=== PATIENT | male | born 1955 | race Caucasian/White ===

== ENCOUNTER → 2017-11-12 15:50 | Outpatient (CLI) | payer OTHER, SELFPAY | PROVIDERS: Visit Provider Family Medicine | DX: M70.32 Other bursitis of elbow, left elbow (principal) | CPT/HCPCS: 87070; 87205 ==

== ENCOUNTER 2019-03-04 08:50 | Inpatient (IN) | payer OTHER, SELFPAY ==
[2019-03-04] VITALS (7 sets, daily range): BP systolic 108–145; BP diastolic 54–85; PULSE 69–77; RESP 16–18; TEMP 37.2–38.1; O2SAT 94–100; BMI 29.5; BMI 28.3; BMI 28.4
--- NOTE | 2019-03-04 09:04 | CT_ITS ---
STUDY: CT ABDOMEN AND PELVIS WITHOUT CONTRAST REASON FOR EXAM: Male, 63 years old. 3 day history of left flank pain. RADIATION DOSAGE (If Supplied By Facility): CTDIvol = ( 7.19 ) mGy, DLP = ( 384.36 ) mGycm TECHNIQUE: Transaxial images were obtained from the dome of the diaphragm to the symphysis pubis without oral contrast, and without intravenous contrast. Sagittal and coronal images were reconstructed. Individualized dose optimization techniques were used for this CT. COMPARISON: None. FINDINGS: The visualized lung bases are unremarkable. Coronary artery calcification of the circumflex artery. Cysts are seen in both lobes of the liver. Normal gallbladder and extrahepatic biliary system. Normal spleen. Normal pancreas. Normal bilateral adrenal glands. Mild degree of right perinephric stranding. Mild degree of left perinephric stranding. Mild degree of bilateral hydronephrosis versus parapelvic renal cysts. There is a small hiatal hernia. Normal small intestine. There are scattered colonic diverticula consistent with diverticulosis. The appendix is visualized and appears normal. Normal abdominal aorta. Normal inferior vena cava. Normal retroperitoneum. Normal urinary bladder. There is enlargement of the prostate gland. The prostate measures 6.2 cm x 5.2 cm. There is a small umbilical hernia containing fat. Small bilateral inguinal hernias containing fat. There are mild degenerative changes of the visualized lumbar spine. CT/Abdomen/Pelvis without Cont IMPRESSION: Mild degree of nonspecific bilateral perinephric stranding and mild hydronephrosis. Prostatic enlargement. Small bilateral inguinal hernias containing fat as well as umbilical hernia. Hepatic cysts. Electronically Signed: Quan Hinson, at 10:19 EST , Service support ,
--- NOTE | 2019-03-04 09:06 | ED.DCSUM_ITS ---
- ER Visit Summary Date of Service: 03/04/19 Chief Complaint: [Back pain] History of Present Illness: The patient is a 63 M [resents to the emergency department complaint of pain in his back that started 2 days ago. Patient states that the pain initially on gradually and was more mild. Last night he had a hard time sleeping because of the amount of pain he was having. Patient complains of urinary frequency. He denies any fever. Denies any blood in his stool or black tarry stool. Denies dysuria. Patient currently rates his pain an 8 out of 10. Patient is never had pain like this before. Patient denies any pain rating down his legs. He denies any weakness in extremities or change in bowel bladder function. Patient denies any trauma to his back. He has no medical history. Denies IV drug use.] Physical Examination: [HEENT-PERRLA, EOMI. Cranial nerves II through XII grossly intact. TMs clear. Mucous membranes moist. No adenopathy. Cardiovascular-regular rate and rhythm without murmur or ectopy Lungs-clear to auscultation, chest wall stable without crepitus or subcu emphysema Abdomen-normoactive bowel sounds, soft. Patient has some tenderness palpation over the suprapubic region on exam. Patient has some CVA tenderness on the left. There is no rebound, rigidity, or perineal signs. No masses palpated. Extremities-intact ?4, normal range of motion, normal pulses, atraumatic] Test Results: [CBC with differential given 4.2, hemoglobin 15, hematocrit 46, platelets 233. Chemistries unremarkable. Urinalysis showed 100 leukocyte esterase and 10.5 WBCs as well as 1025 RBCs are +2 bacteria. Urine was sent for culture. CT scan of the M pelvis showed mild left and right perinephric stranding.] Emergency Department Course and Treatment: [Patient was ordered Rocephin 1 g IV. Patient was medicated with morphine and Zofran as well as Toradol on arrival. Patient was given a second dose of morphine IV. Patient continues to complain of pain.] Treatment Plan: [Admit] Disposition: [Admit] Impression: [Acute pyelonephritis Intractable back pain] This note was generated with imbookin (Pogby) dictation software. It may contain incorrect words, spelling, and punctuation that were not noted in review of the chart prior to signing ED Disposition - Plan for ED Patient: Referrals: Jonatan Frederick MD [Primary Care Provider] -
[2019-03-04] MEDS: Ketorolac 15 MG/ML Vial IV (09:17)
[2019-03-04] MEDS: Ondansetron 4 MG/2 ML Vial IV (09:18)
[2019-03-04] MEDS: 0.9% Normal Saline 1,000 ML 150 ML IV ×3 (09:21→21:02)
[2019-03-04] MEDS: HYDROmorphone 1 MG/ML Syringe IV (09:21)
[2019-03-04 09:29] LABS: Absolute Lymphocyte Count 1.51 X10^3/uL (0.83-4.51); Absolute Neutrophil Count 9.5 X10^3/uL (2.0-7.7); Basophil# 0.03 X10^3/uL; Basophil% 0.2 % (0-1); Eosinophil# 0.05 X10^3/uL; Eosinophils% 0.4 % (0-5); Hematocrit 46.3 % (40-54); Lymphocyte # 1.51 X10^3/ul (4.0); Lymphocyte % 12.3 % (19-41); Mean Corp Hgb Conc 32.4 g/dL (32-36); Mean Corpuscular Volume 89.4 fL (80-94); Monocyte# 1.14 X10^3/uL; Monocyte% 9.3 % (0-10); NRBC Flagged by Analyzer 0 % (0-5); Neutrophil # 9.46 X10^3/uL (2.7-7.7); Neutrophil % 77.4 % (47-70); Platelet Count 233 K/mm3 (150-450); RBC Distribution Width CV 12.2 % (11.6-14.6); RBC Distribution Width SD 40.3 fl (35.1-43.9); Red Blood Count 5.18 M/mm3 (4.6-6.2); White Blood Count 12.2 K/mm3 (4.4-11.0)
[2019-03-04 09:38] LABS: Anion Gap 5 (5-15); BUN 26 mg/dL (7-18); BUN/Creat Ratio 22.2 RATIO (10-20); Chloride 105 mmol/L (98-107); Creatinine, Serum 1.17 mg/dL (0.70-1.30); EST Glomerular Filtration Rate 67 mL/min (>60); Est Glom Filt Rate - Afr Amer 81 mL/min (>60); Estimated Creatinine Clearance 56.21 ml/min; Glucose 94 mg/dL (74-106); Potassium 3.8 mmol/L (3.5-5.1); Sodium Level 138 mmol/L (136-145)
--- NOTE | 2019-03-04 10:55 | NURSING ---
pt up to try to void and unable to despite water given and water faucet running.
[2019-03-04] MEDS: Morphine 4 MG/ML Syringe IV ×2 (12:21→14:20)
[2019-03-04 12:54] LABS: Color, Urine Yellow (Yellow); Glucose, Dipstick 100 mg/dl (Normal); Ketone-Dipstick 5 mg/dl (Negative); Leukocyte Esterase-Dipstick 100 /ul (Negative); Nitrite-Dipstick Negative (Negative); Occult Blood-Urine 150 /ul (Negative); Protein-Dipstick 100 mg/dl (Negative); Urine Clarity Sl. Cloudy (Clear); Urine Urobilinogen 1 mg/dl (Normal)
[2019-03-04 12:55] LABS: Urine Bilirubin Dipstick 1 mg/dL (Negative)
[2019-03-04 13:07] LABS: Bacteria 2+ /hpf (None Seen); Mucous, Urine 1+ /hpf (<or=2+); Red Blood Cells-Urine 10-25 SEEN /hpf (0-5); Squamous Epithelial Cells - UA 0-5 SEEN /hpf (0-5); White Blood Cells 10-25 SEEN /hpf (0-5)
[2019-03-04] MEDS: Ceftriaxone 1 GM/50 ML BAG IV (13:33)
--- NOTE | 2019-03-04 13:38 | PCM.HP.STD ---
Problem List (1) Flank pain Status: Acute (2) Urinary frequency Status: Acute History of Present Illness Date of Admission: 03/04/19 Chief Complaint: Flank pain, urinary frequency The patient is a 63 year old M seen in the emergency room at [facility] with chief complaint of right flank pain and frequent urination over the past 3 days. Patient also had malaise and generally did not feel well. Patient has no chronic medical problems and takes no prescription medications. Patient denies any fever at home although he did have chills over the last 3 days. Patient denies any shortness of breath or chest pain. In the emergency room revealed the patient's white blood cell count to be elevated at 12.2, chemistry profile was normal except for BUN of 26, urinalysis indicated a urinary tract infection with +2 bacteria, 10-25 RBCs, and 10-[address] of the abdomen and pelvis was obtained, there was a mild degree of nonspecific bilateral perinephric stranding and mild hydronephrosis. There was also some prostate enlargement. Small bilateral inguinal hernias were noted as well as an umbilical hernia. There were hepatic cysts also noted. Patient was given IV pain medication and antinausea medication, despite this he had to be medicated again for pain and continued to have flank pain and was uncomfortable. He will be admitted to [place] [id number] for acute pyelonephritis and uncontrolled flank pain, patient was given Rocephin in the emergency room-this will continue on the floor and I will give the patient fluids and analgesics as well as antinausea medications. Past Medical History Allergies No Known Allergies Allergy (Verified 03/04/19 08:50) Home Medications: Ambulatory Orders Medication Instructions Recorded NK 03/04/19 Surgical History: - - Rotator cuff surgery Psychiatric History: No pertinent psych hx Lives: Spouse/ Significant Other Smoking Status: Never smoker Tobacco Use: Non-smoker Alcohol: None Drugs: None - *Family History Maternal History Items: Hypertension Paternal History Items: No pertinent history Review of Systems Constitutional: Reports: Chills, Malaise, Weakness, Fatigue. Denies: Anorexia, Fever, Night Sweats, Weight Change Eyes: Denies: Cataracts, Conjunctivae Inflammation, Double vision, Drainage HEENT: Denies: Difficulty Swallowing, Dysphasia, Ear Pain, Eye Pain, Hearing Changes, Nasal bleeding, Nasal Congestion, Post Nasal Drip Cardiovascular: Denies: Chest Pain, Claudication, Chest Pressure, Chest Tightness, Edema Respiratory: Denies: Cough, Hemoptysis, Pleuritic Pain, Shortness of Breath Gastrointestinal: Denies: Abdominal Pain, Constipation, Diarrhea, Hematemesis, Hematochezia, Nausea, Vomiting Genitourinary: Reports: Frequency, Urgency. Denies: Dysuria, Hematuria, Hesitancy, Incontinence, Nocturia, Retention Musculoskeletal: Denies: Back Pain, Foot Pain, Hand Pain, Joint stiffness, Joint swelling, Joint Tenderness, Leg Pain Skin: Denies: Dryness, Jaundice, Pruritis, Rash Neurological: Denies: Blurred vision, Double vision, Change in Speech, Focal weakness, Headaches, Incoordination Psychiatric: Denies: Anxiety, Depression, Homicidal Ideations Endocrine: Denies: Change in Body Habitus, Heat/ Cold Intolerance, Polydipsia, Polyuria Hematologic/ Lymphatic: Denies: Hx of blood clot, Hx of blood transfusion VTE Information - Inpt Only VTE Present on Admission: No VTE Mechan Device Prophylaxis: None VTE Pharm Prophylaxis ordered?: No Reason prophylaxis not ordered:: Treatment Not Indicated - Patient is at low risk for VTE Patient Problems: Active and Suspected Problems Flank pain (Acute) Urinary frequency (Acute) - Physical Exam Vitals/I&O's: Vital Signs Temp Pulse Resp BP Pulse Ox 98.9 F 69 17 108/54 L 97 03/04/19 12:27 03/04/19 12:27 03/04/19 12:27 03/04/19 12:27 03/04/19 12:27 Oxygen Delivery Method Room Air Weight: 80.6 kg Body Mass Index (BMI) 29.5 Intake and Output for Last 24 Hours 03/02/19 03/03/19 03/04/19 23:59 23:59 23:59 Intake Total 630 / 630 Balance 630 / 630 General: Alert, Oriented x3, Cooperative, - - Patient is in moderate pain due to right flank discomfort HEENT: Atraumatic, PERRLA, EOMI, Normocephalic Oral: Moist Mucosa Neck: Supple, No JVD, Negative Carotid Bruits, Trachea Midline, Thyroid Normal Size and Texture Lungs: Clear to auscultation, Normal air movement, No rhonchi, No wheeze, No rales Cardiovascular: Regular rate, Regular Rhythm, Normal S1, Normal S2, No murmurs Abdomen: Bowel Sounds Present, Soft, Non Tender, Non-Distended, - - he has right flank tenderness to percussion Extremities: No edema, Capillary Refill Less than 3 Seconds Skin: No rashes, No breakdown Musculoskeletal: No Tenderness to Palpation of Joints or Extremities, No Muscle Wasting Neurological: Cranial nerves II-XII grossly intact, Neuro grossly intact, Sensory exam intact to light touch and pain, Coordination normal Psych/Mental Status: Normal Affect, Appropriate, Alert and oriented to time, place, person, mood and affect Laboratory Results 03/04/19 09:15: WBC 12.2 H, RBC 5.18, Hgb 15.0, Hct 46.3, MCV 89.4, MCH 29.0, MCHC 32.4, RDW Std Deviation 40.3, RDW Coeff of [place] 12.2, Plt Count 233, MPV 10.0, Immature Gran % (Auto) 0.400, Neut % (Auto) 77.4 H, Lymph % (Auto) 12.3 L, [place] % (Auto) 9.3, Eos % (Auto) 0.4, Baso % (Auto) 0.2, Absolute Neuts (auto) 9.5 H, Absolute Lymphs (auto) 1.51, Nucleated RBC % 0 03/04/19 09:15: Sodium 138, Potassium 3.8, Chloride 105, Carbon Dioxide 28.0, Anion Gap 5, BUN 26 H, Creatinine 1.17, Estim Creat Clear Calc 56.21, Est GFR (MDRD) Af Amer 81, Est GFR (MDRD) Non-Af 67, BUN/Creatinine Ratio 22.2 H, Glucose 94, Calcium 9.0 03/04/19 12:10: Urine Color Yellow, Urine Clarity Sl. Cloudy, Urine pH 5.0, Ur Specific [place] 1.020, Urine Protein 100 H, Urine Glucose (UA) 100 H, Urine Ketones 5 H, Urine Occult Blood 150 H, Urine Nitrite Negative, Urine Bilirubin 1 H, Urine Urobilinogen 1 H, Ur Leukocyte Esterase 100 H, Urine RBC 10-25 SEEN, Urine WBC 10-25 SEEN, Ur Squamous Epith Cells 0-5 SEEN, Urine Bacteria 2+, Urine Mucus 1+ Current Medications Sodium Chloride () 1,000 mls @ 150 mls/hr IV .Q6H40M [place] Last Infusion: 03/04/19 13:33 Dose: 0 mls/hr Documented by: Assessment/Plan All Active Problems Flank pain (Acute) Urinary frequency (Acute) #1 pyelonephritis-patient will be admitted to [facility], he will be given IV fluids and he will remain on IV Rocephin, blood cultures were obtained and are pending at this time, urine cultures were obtained and they will be pending 2. Patient also had a lactic acid drawn-the results are not known at the time of this dictation. CBC will be repeated tomorrow #2 uncontrolled flank pain secondary to pyelonephritis-patient will be given IV morphine or oral OxyContin Code Visit Inpatient E&M: 83884 Init Hosp L3
[2019-03-04] MEDS: oxyCODONE 5 MG Tablet 10 MG PO (19:02)
[2019-03-05] MEDS: 0.9% Normal Saline 1,000 ML 150 ML IV ×3 (03:03→18:06)
[2019-03-05 03:05] VITALS: BP 139/86; PULSE 68; RESP 16; TEMP 36.4; O2SAT 95
--- NOTE | 2019-03-05 03:41 | NURSING ---
pt stated that he has been trying to use the urinal and was unable to void. Assisted pt to the bathroom and he was still unable to void. pt had pressure and c/o pain in his back. bladder scan for 389. obtained order to straight cath prn 6 q hours. straigh cathed pt for 450 ml ulises urine. pt tolerated well. after straight cath, pt stated the pressure and pain was gone.
[2019-03-05] MEDS: oxyCODONE 5 MG Tablet 10 MG PO (06:48)
[2019-03-05 06:55] LABS: Absolute Lymphocyte Count 1.25 X10^3/uL (0.83-4.51); Absolute Neutrophil Count 6.1 X10^3/uL (2.0-7.7); Basophil# 0.03 X10^3/uL; Basophil% 0.4 % (0-1); Eosinophil# 0.06 X10^3/uL; Eosinophils% 0.7 % (0-5); Lymphocyte # 1.25 X10^3/ul (4.0); Mean Corp Hgb Conc 32.4 g/dL (32-36); Mean Corpuscular Hgb 29.4 pg (27.0-32.0); Mean Corpuscular Volume 90.7 fL (80-94); Mean Platelet Vol. 10.5 fl (6.2-12.0); Monocyte# 0.84 X10^3/uL; Monocyte% 10.1 % (0-10); NRBC Flagged by Analyzer 0 % (0-5); Neutrophil % 73.2 % (47-70); Platelet Count 193 K/mm3 (150-450); RBC Distribution Width CV 12.3 % (11.6-14.6); RBC Distribution Width SD 40.4 fl (35.1-43.9); Red Blood Count 4.08 M/mm3 (4.6-6.2); White Blood Count 8.3 K/mm3 (4.4-11.0)
--- NOTE | 2019-03-05 09:10 | PCM.PN.HOSP ---
Patient Problems: Active and Suspected Problems Flank pain (Acute) Urinary frequency (Acute) Subjective: Does not feel significantly better from admission, had to be straight cath twice yesterday because of an inability to urinate. Vitals/I&O's: Vital Signs Temp Pulse Resp BP Pulse Ox 97.5 F L 68 16 139/86 H 95 03/05/19 03:05 03/05/19 03:05 03/05/19 03:05 03/05/19 03:05 03/05/19 03:05 Oxygen Delivery Method Room Air Weight: 175 lb 11.2 oz Body Mass Index (BMI) 28.3 Intake and Output for Last 24 Hours 03/03/19 03/04/19 03/05/19 23:59 23:59 23:59 Intake Total 1727.5 / 1727.5 1102.5 / 1102.5 Output Total 150 / 150 500 / 500 Balance 1577.5 / 1577.5 602.5 / 602.5 General: Alert, Oriented x3, Cooperative, No apparent distress HEENT: Atraumatic, PERRLA, EOMI, Normocephalic Oral: Moist Mucosa Neck: Supple, No JVD Lungs: Clear to auscultation, Normal air movement, No rhonchi, No wheeze, No rales Cardiovascular: Regular rate, Regular Rhythm, Normal S1, Normal S2, No murmurs Abdomen: Soft, Non Tender, Non-Distended, No Hepato-splenomegaly, - - Slight left CVA tenderness Extremities: No edema, Capillary Refill Less than 3 Seconds Skin: No rashes, No breakdown Neurological: Neuro grossly intact, Sensory exam intact to light touch and pain Psych/Mental Status: Normal Affect, Appropriate Laboratory Results 03/04/19 09:15: WBC 12.2 H, RBC 5.18, Hgb 15.0, Hct 46.3, MCV 89.4, MCH 29.0, MCHC 32.4, RDW Std Deviation 40.3, RDW Coeff of [place] 12.2, Plt Count 233, MPV 10.0, Immature Gran % (Auto) 0.400, Neut % (Auto) 77.4 H, Lymph % (Auto) 12.3 L, [place] % (Auto) 9.3, Eos % (Auto) 0.4, Baso % (Auto) 0.2, Absolute Neuts (auto) 9.5 H, Absolute Lymphs (auto) 1.51, Nucleated RBC % 0 03/04/19 09:15: Sodium 138, Potassium 3.8, Chloride 105, Carbon Dioxide 28.0, Anion Gap 5, BUN 26 H, Creatinine 1.17, Estim Creat Clear Calc 56.21, Est GFR (MDRD) Af Amer 81, Est GFR (MDRD) Non-Af 67, BUN/Creatinine Ratio 22.2 H, Glucose 94, Calcium 9.0 03/04/19 12:10: Urine Color Yellow, Urine Clarity Sl. Cloudy, Urine pH 5.0, Ur Specific [place] 1.020, Urine Protein 100 H, Urine Glucose (UA) 100 H, Urine Ketones 5 H, Urine Occult Blood 150 H, Urine Nitrite Negative, Urine Bilirubin 1 H, Urine Urobilinogen 1 H, Ur Leukocyte Esterase 100 H, Urine RBC 10-25 SEEN, Urine WBC 10-25 SEEN, Ur Squamous Epith Cells 0-5 SEEN, Urine Bacteria 2+, Urine Mucus 1+ 03/04/19 13:25: Lactic Acid 1.0 03/05/19 06:24: WBC 8.3, RBC 4.08 L, Hgb 12.0 L, Hct 37.0 L, MCV 90.7, MCH 29.4, MCHC 32.4, RDW Std Deviation 40.4, RDW Coeff of [place] 12.3, Plt Count 193, MPV 10.5, Immature Gran % (Auto) 0.600, Neut % (Auto) 73.2 H, Lymph % (Auto) 15.0 L, [place] % (Auto) 10.1 H, Eos % (Auto) 0.7, Baso % (Auto) 0.4, Absolute Neuts (auto) 6.1, Absolute Lymphs (auto) 1.25, Nucleated RBC % 0 Current Medications Acetaminophen (Tylenol) 650 mg PO Q6H PRN PRN PRN Reason: Pain Score 1-3/Temp > 100.7 F Sodium Chloride () 1,000 mls @ 150 mls/hr IV .Q6H40M [facility] Last Admin: 03/05/19 03:03 Dose: 150 mls/hr Documented by: Ceftriaxone Sodium (Rocephin) 1 gm in 50 mls @ 100 mls/hr IV Q24 [facility] Influenza Virus Vaccine Quadrival (Flucelvax /Fluzone [id number]) 0.5 ml IM .ONCE ONE Stop: 03/05/19 10:01 Morphine Sulfate () 4 mg IV Q3H PRN PRN PRN Reason: Pain Score 6-10/10 Nutritional Formula (Lactose Free) (Ensure Enlive) 120 ml PO 4X/DAY [facility] Last Admin: 03/04/19 21:15 Dose: 120 ml Documented by: Ondansetron HCl (Zofran) 4 mg IV Q8H PRN PRN PRN Reason: NAUSEA/VOMITING Oxycodone HCl (Oxyir) 10 mg PO Q4H PRN PRN PRN Reason: Pain Score 4-5/10 Last Admin: 03/05/19 06:48 Dose: 10 mg Documented by: Sodium Chloride () 10 - 40 ml IV UD PRN PRN Reason: SALINE FLUSH Zolpidem Tartrate (Ambien (Generic)) 5 mg PO QHS PRN PRN PRN Reason: INSOMNIA Medical Necessity - Tobacco Use Smoking Status: Never smoker Tobacco Use: Non-smoker Assessment/Plan All Active Problems Flank pain (Acute) Urinary frequency (Acute) 1. Left pyelonephritis and cystitis/BPH with possible urinary retention -Had to be straight cath twice, will start him on Flomax -Continue with Rocephin, while cultures are pending -He may need to have a Noriega placed with an eventual voiding trial or follow-up with urology as an outpatient if his retention does not improve with treatment -Oxycodone PRN for flank pain DVT: Lovenox Code Visit Inpatient E&M: 77519 Subs Hosp L2
[2019-03-05 10:10] VITALS: BP 118/72; PULSE 59; RESP 18; TEMP 37.2; O2SAT 96
[2019-03-05] MEDS: Tamsulosin HCl 0.4 MG Capsule PO (10:49)
[2019-03-05] MEDS: Enoxaparin 40 MG/0.4 ML Syringe SC (10:50)
[2019-03-05] MEDS: Ceftriaxone 1 GM/50 ML BAG IV (10:54)
[2019-03-05 16:15] VITALS: BP 126/68; PULSE 68; RESP 18; TEMP 37.3; O2SAT 98
[2019-03-05 20:07] VITALS: BP 119/77; PULSE 69; RESP 16; TEMP 37.3; O2SAT 97
[2019-03-06] MEDS: 0.9% Normal Saline 1,000 ML 150 ML IV ×2 (00:15→06:49)
[2019-03-06 02:07] VITALS: BP 159/96; PULSE 68; RESP 16; TEMP 37; O2SAT 99
[2019-03-06 09:25] VITALS: BP 143/81; PULSE 53; RESP 18; TEMP 37.3; O2SAT 97
[2019-03-06] MEDS: Ciprofloxacin 400 MG/200 ML BAG 200 MG IV (09:38)
[2019-03-06] MEDS: Tamsulosin HCl 0.4 MG Capsule PO (09:39)
[2019-03-06] MEDS: Enoxaparin 40 MG/0.4 ML Syringe SC (09:39)
--- NOTE | 2019-03-06 09:52 | DCINST_ITS ---
- Discharge Diagnoses Current Active Problems: Current Active and Chronic Problems Flank pain (Acute) Urinary frequency (Acute) You will use the following diet at home:: Regular Your food should be the consistency of: Regular Your liquids should be the consistency of: Regular/Thin Discharge Activity: Return to Normal Activity Call your doctor if you observe: Fever of 101 or Higher, Shortness of breath, Dizziness, Fainting spells, Swelling in the ankles, Chest pain, Increased palpitations (irregular heartbeat) Allergies/Adverse Reactions: Allergies No Known Allergies Allergy (Verified 03/04/19 08:50) Medications to take at Discharge Ciprofloxacin [Cipro] 500 mg PO BID #14 tab 03/06/19 Tamsulosin HCl [Flomax] 0.4 mg PO DAILY@1730 #30 cap 03/06/19 The following prescriptions were given: Ciprofloxacin [Cipro] 500 mg PO BID #14 tab Transmission Status: Pending to [id number] Tamsulosin HCl [Flomax] 0.4 mg PO DAILY@1730 #30 cap Transmission Status: Pending to [id number] Primary Care Physician: Jonatan Frederick MD [Primary Care Provider] - Please follow up with your Primary Care Physician in: 3-5 days Test Results: Test results from this visit will be discussed in further detail at your follow- up appointment, if applicable. Please Follow Up With: Fadi Ybarra MD When: 2-4 weeks
--- NOTE | 2019-03-06 09:53 | DS.PCM_ITS ---
Discharge Date and Diagnosis - Problem List Patient Problems: Active and Suspected Problems Flank pain (Acute) Urinary frequency (Acute) Date of Admission: 03/04/19 Date of Discharge: 03/06/19 - Primary Discharge Diagnosis Active and Suspected Problems Flank pain (Acute) Urinary frequency (Acute) Hospital Course and Treatment Imaging Results: CT Abd/pelvis: IMPRESSION: Mild degree of nonspecific bilateral perinephric stranding and mild hydronephrosis. Prostatic enlargement. Small bilateral inguinal hernias containing fat as well as umbilical hernia. Hepatic cysts. Consults: None Operations: None Procedures: None Summary of Care Provided: Per HPI: The patient is a 63 year old M seen in the emergency room at [facility] with chief complaint of right flank pain and frequent urination over the past 3 days. Patient also had malaise and generally did not feel well. Patient has no chronic medical problems and takes no prescription medications. Patient denies any fever at home although he did have chills over the last 3 days. Patient denies any shortness of breath or chest pain. In the emergency room revealed the patient's white blood cell count to be elevated at 12.2, chemistry profile was normal except for BUN of 26, urinalysis indicated a urinary tract infection with +2 bacteria, 10-25 RBCs, and 10-[address] of the abdomen and pelvis was obtained, there was a mild degree of nonspecific bilateral perinephric stranding and mild hydronephrosis. There was also some prostate enlargement. Small bilateral inguinal hernias were noted as well as an umbilical hernia. There were hepatic cysts also noted. Patient was given IV pain medication and antinausea medication, despite this he had to be medicated again for pain and continued to have flank pain and was uncomfortable. He will be admitted to [place] [address] for acute pyelonephritis and uncontrolled flank pain, patient was given Rocephin in the emergency room-this will continue on the floor and I will give the patient fluids and analgesics as well as antinausea medications. Hospital Course: 1. Left pyelonephritis with cystitis/BPH with possible urinary retention- 63-year-old male with no significant past medical history presenting with left flank pain and urinary frequency. He was started on Rocephin for pyelonephritis and cystitis, however cultures came back with enterococcus at which sensitive to Cipro so he was switched to Cipro. Also he had to be straight cath twice for urinary retention however once his Flomax was initiated he has been able to urinate for today. Plan will be to discharge home today with Cipro for 7 days and Flomax for 30 days. I do recommend that he follow-up with urology as an outpatient as well as with his PCP in 3 to 5 days. He did express understanding with the risks and benefits of the discharge plan. Patient Problems: Active and Suspected Problems Flank pain (Acute) Urinary frequency (Acute) - Physical Exam Vitals/I&O's: Vital Signs Temp Pulse Resp BP Pulse Ox 99.1 F 53 L 18 143/81 H 97 03/06/19 09:25 03/06/19 09:25 03/06/19 09:25 03/06/19 09:25 03/06/19 09:25 Oxygen Delivery Method Room Air Weight: 175 lb 11.335 oz Body Mass Index (BMI) 28.3 Intake and Output for Last 24 Hours 03/04/19 03/05/19 03/06/19 23:59 23:59 23:59 Intake Total 1727.5 / 1727.5 4302.5 / 4702.5 2947.5 / 2947.5 Output Total 150 / 150 1150 / 1800 1550 / 1550 Balance 1577.5 / 1577.5 3152.5 / 2902.5 1397.5 / 1397.5 General: Alert, Oriented x3, Cooperative, No apparent distress HEENT: Atraumatic, PERRLA, EOMI, Normocephalic Oral: Moist Mucosa Neck: Supple, No JVD Lungs: Clear to auscultation, Normal air movement, No rhonchi, No wheeze, No rales Cardiovascular: Regular rate, Regular Rhythm, Normal S1, Normal S2, No murmurs Abdomen: Soft, Non Tender, Non-Distended, No Hepato-splenomegaly Extremities: No edema, Capillary Refill Less than 3 Seconds Skin: No rashes, No breakdown Neurological: Neuro grossly intact, Sensory exam intact to light touch and pain Psych/Mental Status: Normal Affect, Appropriate Microbiology Past 72 Hours 03/04/19 12:10 Urine Catheter - Catheter Urine Culture - Final Enterococcus faecalis Current Medications Acetaminophen (Tylenol) 650 mg PO Q6H PRN PRN PRN Reason: Pain Score 1-3/Temp > 100.7 F Docusate Sodium (Colace) 100 mg PO BID PRN PRN PRN Reason: CONSTIPATION Enoxaparin Sodium (Lovenox) 40 mg SC DAILY [facility] Last Admin: 03/06/19 09:39 Dose: 40 mg Documented by: Sodium Chloride () 1,000 mls @ 150 mls/hr IV .Q6H40M [facility] Last Infusion: 03/06/19 09:45 Dose: 0 mls/hr Documented by: Ciprofloxacin (Cipro) 400 mg in 200 mls @ 200 mls/hr IV Q12 [facility] Last Admin: 03/06/19 09:38 Dose: 200 mls/hr Documented by: Morphine Sulfate () 4 mg IV Q3H PRN PRN PRN Reason: Pain Score 6-10/10 Nutritional Formula (Lactose Free) (Ensure Enlive) 120 ml PO 4X/DAY [facility] Last Admin: 03/06/19 09:40 Dose: 120 ml Documented by: Ondansetron HCl (Zofran) 4 mg IV Q8H PRN PRN PRN Reason: NAUSEA/VOMITING Oxycodone HCl (Oxyir) 10 mg PO Q4H PRN PRN PRN Reason: Pain Score 4-5/10 Last Admin: 03/05/19 06:48 Dose: 10 mg Documented by: Sodium Chloride () 10 - 40 ml IV UD PRN PRN Reason: SALINE FLUSH Tamsulosin HCl (Flomax) 0.4 mg PO DAILY@1730 [facility] Last Admin: 03/06/19 09:39 Dose: 0.4 mg Documented by: Zolpidem Tartrate (Ambien (Generic)) 5 mg PO QHS PRN PRN PRN Reason: INSOMNIA Discharge Activity: Return to Normal Activity Call your doctor if you observe: Fever of 101 or Higher, Shortness of breath, Dizziness, Fainting spells, Swelling in the ankles, Chest pain, Increased palpitations (irregular heartbeat) Home Medications: Medications to take at Discharge Ciprofloxacin [Cipro] 500 mg PO BID #14 tab 03/06/19 Tamsulosin HCl [Flomax] 0.4 mg PO DAILY@1730 #30 cap 03/06/19 Following Prescrptions Were Given to Patient: Ciprofloxacin [Cipro] 500 mg PO BID #14 tab Transmission Status: Pending to [facility]/pharmacy #[id number] Tamsulosin HCl [Flomax] 0.4 mg PO DAILY@1730 #30 cap Transmission Status: P[id number] Primary Care Physician: Jonatan Frederick MD [Primary Care Provider] - Please follow up with your Primary Care Physician in: 3-5 days Please Follow Up With: Fadi Ybarra MD When: 2-4 weeks Disposition: Home Minutes spent on discharge:: 35 Patient Condition:: Stable Medical Necessity - Tobacco Use Smoking Status: Never smoker Tobacco Use: Non-smoker Meaningful Use Info Meaningful Use Diagnoses (Choose all that apply): None applicable Code Visit Inpatient E&M: 06570 Disch Hosp
--- NOTE | 2019-03-06 10:01 | PCM.PN.HOSP ---
Patient Problems: Active and Suspected Problems Flank pain (Acute) Urinary frequency (Acute) Subjective: Doing well, no issues, able to urinate. Vitals/I&O's: Vital Signs Temp Pulse Resp BP Pulse Ox 99.1 F 53 L 18 143/81 H 97 03/06/19 09:25 03/06/19 09:25 03/06/19 09:25 03/06/19 09:25 03/06/19 09:25 Oxygen Delivery Method Room Air Weight: 175 lb 11.335 oz Body Mass Index (BMI) 28.3 Intake and Output for Last 24 Hours 03/04/19 03/05/19 03/06/19 23:59 23:59 23:59 Intake Total 1727.5 / 1727.5 4302.5 / 4702.5 2947.5 / 2947.5 Output Total 150 / 150 1150 / 1800 1550 / 1550 Balance 1577.5 / 1577.5 3152.5 / 2902.5 1397.5 / 1397.5 General: Alert, Oriented x3, Cooperative, No apparent distress HEENT: Atraumatic, PERRLA, EOMI, Normocephalic Oral: Moist Mucosa Neck: Supple, No JVD Lungs: Clear to auscultation, Normal air movement, No rhonchi, No wheeze, No rales Cardiovascular: Regular rate, Regular Rhythm, Normal S1, Normal S2, No murmurs Abdomen: Soft, Non Tender, Non-Distended, No Hepato-splenomegaly Extremities: No edema, Capillary Refill Less than 3 Seconds Skin: No rashes, No breakdown Neurological: Neuro grossly intact, Sensory exam intact to light touch and pain Psych/Mental Status: Normal Affect, Appropriate Microbiology Past 72 Hours 03/04/19 12:10 Urine Catheter - Catheter Urine Culture - Final Enterococcus faecalis Current Medications Acetaminophen (Tylenol) 650 mg PO Q6H PRN PRN PRN Reason: Pain Score 1-3/Temp > 100.7 F Docusate Sodium (Colace) 100 mg PO BID PRN PRN PRN Reason: CONSTIPATION Enoxaparin Sodium (Lovenox) 40 mg SC DAILY [facility] Last Admin: 03/06/19 09:39 Dose: 40 mg Documented by: Sodium Chloride () 1,000 mls @ 150 mls/hr IV .Q6H40M [facility] Last Infusion: 03/06/19 09:45 Dose: 0 mls/hr Documented by: Ciprofloxacin (Cipro) 400 mg in 200 mls @ 200 mls/hr IV Q12 [facility] Last Admin: 03/06/19 09:38 Dose: 200 mls/hr Documented by: Morphine Sulfate () 4 mg IV Q3H PRN PRN PRN Reason: Pain Score 6-10/10 Nutritional Formula (Lactose Free) (Ensure Enlive) 120 ml PO 4X/DAY [facility] Last Admin: 03/06/19 09:40 Dose: 120 ml Documented by: Ondansetron HCl (Zofran) 4 mg IV Q8H PRN PRN PRN Reason: NAUSEA/VOMITING Oxycodone HCl (Oxyir) 10 mg PO Q4H PRN PRN PRN Reason: Pain Score 4-5/10 Last Admin: 03/05/19 06:48 Dose: 10 mg Documented by: Sodium Chloride () 10 - 40 ml IV UD PRN PRN Reason: SALINE FLUSH Tamsulosin HCl (Flomax) 0.4 mg PO DAILY@1730 [facility] Last Admin: 03/06/19 09:39 Dose: 0.4 mg Documented by: Zolpidem Tartrate (Ambien (Generic)) 5 mg PO QHS PRN PRN PRN Reason: INSOMNIA STROKE Vital Signs/Narrative: Vital Signs Temp Pulse Resp BP Pulse Ox 03/06/19 09:25 99.1 F 53 L 18 143/81 H 97 Medical Necessity - Tobacco Use Smoking Status: Never smoker Tobacco Use: Non-smoker Assessment/Plan All Active Problems Flank pain (Acute) Urinary frequency (Acute) 1. Left pyelonephritis and cystitis/BPH with possible urinary retention -Able to urinate now after starting Flomax -Continue with Cipro as cultures are growing enterococcus -Oxycodone PRN for flank pain DVT: Lovenox Code Visit Inpatient E&M: 74971 Subs Hosp L2
[2019-03-06 14:25] VITALS: BP 139/71; PULSE 64; RESP 16; TEMP 37.1; O2SAT 98
== END 2019-03-06 14:32 | disposition home or self-care (01) | DRG 690 ==
LOC: ED 09:29 → MS3 13:49
PROVIDERS: Admitting Provider Internal Medicine; Emergency Provider Emergency Medicine; Family Provider Family Medicine; PCP Family Medicine; Referring Provider Internal Medicine; Visit Provider Family Medicine
DX: N10 Acute pyelonephritis (principal); N30.90 Cystitis, unspecified without hematuria; B95.2 Enterococcus as the cause of diseases classified elsewhere; N40.1 Benign prostatic hyperplasia with lower urinary tract symptoms; R33.8 Other retention of urine
CPT/HCPCS: 36415; 74176; 80048; 81001; 83605; 85025; 87040; 87077; 87086; 87088; 87186; 97802; 99285; J7030; P9612; 90686; A4216; J0744; J2405

== ENCOUNTER 2019-03-08 18:13 | Emergency (ER) | payer OTHER, SELFPAY ==
[2019-03-08 18:13] VITALS: BMI 29.5
[2019-03-08 18:14] VITALS: BP 147/80; PULSE 88; RESP 16; TEMP 37.2; O2SAT 100; BMI 29.5
--- NOTE | 2019-03-08 18:20 | ED.RN ---
PT REPORTS PAIN IS AT TIP OF PENIS AND INCREASES SIGNIFICANTLY WITH URINATION. HAS FREQUENCY AND HESITIANCY.
[2019-03-08 18:34] LABS: Bacteria 0 SEEN /hpf (None Seen); Mucous, Urine 0 SEEN /hpf (<or=2+); Squamous Epithelial Cells - UA 0 SEEN /hpf (0-5)
--- NOTE | 2019-03-08 18:45 | ED.DCSUM_ITS ---
- ER Visit Summary Date of Service: 03/08/19 Chief Complaint: Dysuria and urinary frequency History of Present Illness: The patient is a 63 M who presents with dysuria and urinary frequency that began yesterday. Patient states he has been urinating frequently since yesterday. Patient states he has burning at the end of his urethra whenever he urinates. Patient denies any hematuria. Patient denies any flank or back pain. Patient denies any nausea or vomiting. Patient denies any fevers or chills. Physical Examination: Vital signs are stable. Patient is afebrile. Patient is in no acute distress. Oral mucosa is pink and moist. Neck is supple. Trachea is midline. There is no JVD. Heart was regular rate and rhythm. Lungs are clear and equal bilaterally. Abdomen is soft. Bowel sounds are normal. There is no tenderness. Cranial nerves II through XII are intact. There are no focal motor or sensory deficits noted. Test Results: Urinalysis was obtained. There is no evidence for urinary tract infection. BGT was obtained and was 115. Emergency Department Course and Treatment: Patient has urinated multiple times here in the emergency department despite the fact that there is no evidence for urinary tract infection. Patient was given a prescription for Pyridium. Patient has an appoint with his primary care physician tomorrow. Patient was instructed to follow-up there. Patient understood and was agreeable with the plan. All questions were answered. Disposition: Discharge home Impression: Urinary frequency This note was generated with [employer] dictation software. It may contain incorrect words, spelling, and punctuation that were not noted in review of the chart prior to signing ED Disposition - Plan for ED Patient: Disposition: Home or Assisted Living Diagnosis: Urinary frequency Instructions: DYSURIA, Uncertain Cause (Adult) Prescriptions: Phenazopyridine HCl [Pyridium] 200 mg PO TID #6 tab Prescription Printed Referrals: Jonatan Frederick MD [Primary Care Provider] - Keep Rito appointment
[2019-03-08 19:16] LABS: Color, Urine Yellow (Yellow); Glucose, Dipstick Normal (Normal); Ketone-Dipstick Negative (Negative); Leukocyte Esterase-Dipstick Negative /ul (Negative); Nitrite-Dipstick Negative (Negative); Occult Blood-Urine 25 /ul (Negative); Protein-Dipstick 30 mg/dl (Negative); Urine Bilirubin Dipstick Negative (Negative); Urine Clarity Clear (Clear); Urine Urobilinogen Normal (Normal)
[2019-03-08 19:44] LABS: Red Blood Cells-Urine 0-5 SEEN /hpf (0-5); White Blood Cells 0-5 SEEN /hpf (0-5)
[2019-03-08 20:52] VITALS: PULSE 83; RESP 14; O2SAT 98
[2019-03-08 21:11] LABS: Bedside Glucose 115 mg/dL (70-110)
[2019-03-08] MEDS: Phenazopyridine 95 MG Tablet 190 MG PO (21:21)
[2019-03-08 21:26] VITALS: BP 142/88; PULSE 72; RESP 18; O2SAT 100
== END 2019-03-08 21:26 | disposition home or self-care (01) ==
PROVIDERS: Emergency Provider Emergency Medicine; Family Provider Family Medicine; PCP Family Medicine
DX: R30.0 Dysuria (principal); R35.0 Frequency of micturition; R51 Headache; Z79.899 Other long term (current) drug therapy
CPT/HCPCS: 81001; 82962; 99283

== ENCOUNTER 2019-03-09 11:12 | Emergency (ER) | payer OTHER, SELFPAY ==
[2019-03-08 18:14] VITALS: BMI 29.5
[2019-03-09 11:14] VITALS: BP 129/95; PULSE 76; RESP 18; TEMP 36.6; O2SAT 98; BMI 28.4
[2019-03-09 12:23] LABS: Absolute Lymphocyte Count 1.45 X10^3/uL (0.83-4.51); Absolute Neutrophil Count 7.7 X10^3/uL (2.0-7.7); Basophil# 0.03 X10^3/uL; Basophil% 0.3 % (0-1); Eosinophil# 0.09 X10^3/uL; Eosinophils% 0.9 % (0-5); Hematocrit 42.4 % (40-54); Hemoglobin 13.8 g/dL (13.0-16.5); Lymphocyte # 1.45 X10^3/ul (4.0); Lymphocyte % 14.2 % (19-41); Mean Corp Hgb Conc 32.5 g/dL (32-36); Mean Corpuscular Hgb 28.7 pg (27.0-32.0); Mean Corpuscular Volume 88.1 fL (80-94); Mean Platelet Vol. 10.7 fl (6.2-12.0); Monocyte# 0.86 X10^3/uL; Monocyte% 8.4 % (0-10); NRBC Flagged by Analyzer 0 % (0-5); Neutrophil # 7.73 X10^3/uL (2.7-7.7); Neutrophil % 75.7 % (47-70); POSITIVE COUNT YES; Platelet Count 234 K/mm3 (150-450); RBC Distribution Width CV 12.1 % (11.6-14.6); RBC Distribution Width SD 38.9 fl (35.1-43.9); Red Blood Count 4.81 M/mm3 (4.6-6.2); White Blood Count 10.2 K/mm3 (4.4-11.0)
[2019-03-09 12:37] LABS: Anion Gap 7 (5-15); BUN 24 mg/dL (7-18); BUN/Creat Ratio 22.6 RATIO (10-20); Calcium,Total 8.9 mg/dL (8.5-10.1); Chloride 105 mmol/L (98-107); Creatinine, Serum 1.06 mg/dL (0.70-1.30); EST Glomerular Filtration Rate 75 mL/min (>60); Est Glom Filt Rate - Afr Amer 91 mL/min (>60); Estimated Creatinine Clearance 64.37 ml/min; Glucose 96 mg/dL (74-106); Sodium Level 139 mmol/L (136-145)
[2019-03-09 12:39] LABS: Color, Urine Red (Yellow); Glucose, Dipstick Normal (Normal); Ketone-Dipstick 15 mg/dl (Negative); Leukocyte Esterase-Dipstick Negative /ul (Negative); Nitrite-Dipstick Positive (Negative); Occult Blood-Urine 25 /ul (Negative); Protein-Dipstick 30 mg/dl (Negative); Specific Gravity, Urine 1.025 (1.002-1.030); Urine Clarity Cloudy (Clear); Urine Urobilinogen 8 mg/dl (Normal)
[2019-03-09 12:41] LABS: Urine Bilirubin Dipstick 6 mg/dL (Negative)
[2019-03-09 13:02] LABS: Red Blood Cells-Urine 0-5 SEEN /hpf (0-5); Squamous Epithelial Cells - UA 0-5 SEEN /hpf (0-5); White Blood Cells 0-5 SEEN /hpf (0-5)
[2019-03-09 13:03] LABS: Bacteria 2+ /hpf (None Seen); Mucous, Urine 1+ /hpf (<or=2+)
[2019-03-09 13:07] LABS: Differential Indicated SCAN CRITERIA MET
[2019-03-09 13:08] LABS: Platelet Estimate ADEQUATE (ADEQ)
[2019-03-09 13:09] LABS: Red Cell Morphology NORM C+C NORMAL (NORM C&C)
--- NOTE | 2019-03-09 13:52 | ED.VIS.GEN ---
History of Present Illness Chief Complaint: Complaint Detail of Chief Complaint: Dysuria, frequency and urgency Informant: Patient, Family, Significant Other Onset: Days Context: Sudden Onset Timing: Intermittent Quality: Dysuria Location: Penis Current Severity: - - None Maximum Severity: Severe Worsened by: Urination Relieved by: Not urinating Associated Symptoms: No other symptoms Narrative: She was seen on Thursday Patient was straight cathed 3 times. Noriega was not placed. He was prescribed Flomax for enlarged prostate. He was discharged on Thursday. He states he was doing well. He was seen last evening for urinary symptoms. He was seen by urology nurse practitioner today and sent in for possible pyelonephritis versus prostatitis. He denies fever, Chills or night sweats. Patient denies nausea, vomiting or diarrhea. He denies testicular pain. He denies tenesmus. He denies low back pain. Prior similar symptoms: Yes Recent Illness/Hospitalization: Yes - Past Medical History (1) Urinary retention Status: Acute (2) BPH (benign prostatic hyperplasia) Status: Acute (3) Urinary frequency Status: Acute Past Medical History - Allergies and Home Meds Allergies/Adverse Reactions: Allergies No Known Allergies Allergy (Verified 03/09/19 11:13) Primary Care Physician: Jonatan Frederick MD [Primary Care Provider] - Prior records reviewed: Yes Surgical History: - - Rotator cuff surgery Lives: Spouse/ Significant Other Smoking Status: Never smoker Alcohol: None Drugs: None - Family History Maternal Family History: Reports: Hypertension Paternal Family History: Reports: No pertinent history Review of Systems General: Reports: Malaise. Denies: Chills, Fever, Subjective, Sweats Eyes: Denies: Visual changes - bilaterally, Blurred Vision - bilaterally ENT: Denies: Rhinorrhea, Sore throat Cardiovascular: Denies: Chest pain, Palpitations Respiratory: Denies: Dyspnea, Cough, Dyspnea on exertion Gastrointestinal: Denies: Abdominal pain, Nausea, Vomiting, Diarrhea, Melena, Hematochezia Genitourinary: Reports: Dysuria, Frequency. Denies: Hematuria Musculoskeletal: Denies: Myalgias, Arthralgias, Neck pain, Back pain, Swelling, Extremity Pain Skin: Denies: Rash, Wounds Neurological: Denies: Headache, Weakness, Numbness Hematologic: Denies: Easy bruising, Easy bleeding Physical Exam Vital Signs/Narrative: Vital Signs Temp Pulse Resp BP Pulse Ox 03/09/19 11:14 97.8 F 76 18 129/95 H 98 Inital Vital Signs reviewed: Yes General: Well nourished, Well developed, No Acute Distress Head: Normocephalic, Atraumatic Eyes: Perrl, EOMI. Negative for: Pale conjunctiva, Scleral icterus ENT: Moist mucous membranes, No rhinorrhea, TM's clear Neck: Supple, Nontender Cardiovascular: Regular rate, Regular rhythm, No murmurs, Normal S1, Normal S2 Respiratory: No distress, CTA bilaterally, Chest nontender Abdomen: Soft, Nontender, Nondistended, Normal bowel sounds Rectal: - - No fissures, fistulas or hemorrhoids noted. There is no stool in the rectal vault. : - - Prostate is enlarged. The prostate is not boggy, warm or tender. He reported discomfort. Testes are descended bilaterally no testicular or epididymal tenderness. Back: Nontender, Normal Inspection. Negative for: CVA tenderness Extremities: Nontender, No edema Skin: Normal color, No rash Neurological: Alert, Oriented x3, Cranial nerves II-XII grossly intact, Normal Strength, Normal Sensation Psychological: Normal affect, Normal Mood Diagnostic/Tx/Re-eval Laboratory Results 03/09/19 03/09/19 03/09/19 12:09 12:09 12:30 WBC 10.2 RBC 4.81 Hgb 13.8 Hct 42.4 MCV 88.1 MCH 28.7 MCHC 32.5 RDW Std Deviation 38.9 RDW Coeff of [place] 12.1 Plt Count 234 MPV 10.7 Immature Gran % (Auto) 0.500 Neut % (Auto) 75.7 H Lymph % (Auto) 14.[address] [place] % (Auto) 8.4 Eos % (Auto) 0.9 Baso % (Auto) 0.3 Absolute Neuts (auto) 7.7 Absolute Lymphs (auto) 1.45 Nucleated RBC % 0 Platelet Estimate ADEQUATE RBC Morphology NORM C+C Sodium 139 Potassium 4.0 Chloride 105 Carbon Dioxide 27.0 Anion Gap 7 BUN 24 H Creatinine 1.06 Estim Creat Clear Calc 64.37 Est GFR (MDRD) Af Amer 91 Est GFR (MDRD) Non-Af 75 BUN/Creatinine Ratio 22.6 H Glucose 96 Calcium 8.9 Urine Color Red Urine Clarity Cloudy Urine pH 5.0 Ur Specific [place] 1.025 Urine Protein 30 H Urine Glucose (UA) Normal Urine Ketones 15 H Urine Occult Blood 25 H Urine Nitrite Positive H Urine Bilirubin 6 H Urine Urobilinogen 8 H Ur Leukocyte Esterase Negative Urine RBC 0-5 SEEN Urine WBC 0-5 SEEN Ur Squamous Epith Cells 0-5 SEEN Urine Bacteria 2+ Urine Mucus 1+ It is suggestive of urinary tract infection. Culture was sent. He received IV Rocephin and was discharged with 10-day course of Bactrim. Based on history, physical exam he does not have pyelonephritis or prostatitis. ED Disposition - Plan for ED Patient: Disposition: Home or Assisted Living Diagnosis: Urinary tract infection associated with catheterization of urinary tract Instructions: Bladder Infection, Male (Adult) Prescriptions: Smz/Tmp Ds [Bactrim Ds] 1 tab PO BID #20 tab Transmission Status: [id number] Phenazopyridine HCl [Pyridium] 200 mg PO TID #10 tab Transmission Status: [id number] Referrals: Jonatan Frederick MD [Primary Care Provider] - 3-5 Days
[2019-03-09] MEDS: Morphine 4 MG/ML Syringe IV (14:17)
[2019-03-09 15:08] VITALS: BP 156/87; PULSE 74; RESP 16; O2SAT 98
--- NOTE | 2019-03-09 15:34 | ED.RN ---
RN AT BEDSIDE TO D/C PATIENT. PATIENT AND FAMILY UPSET THAT INSURANCE COUNSEL FROM UROLOGY OFFICE STATED DR. ROBERTS WOULD COME BY TO THE ER TO EVALUATE PATIENT. RN ADVISED PATIENT TO CALL UROLOGY OFFICE TOMORROW WHEN THEY OPEN. PT STATES PAIN IS MUCH BETTER AND IS READY TO GO HOME. PATIENTS VITALS WNL. IV D/C'D.
[2019-03-09 15:51] VITALS: BP 156/87; PULSE 74; RESP 16; O2SAT 98
== END 2019-03-09 15:53 | disposition home or self-care (01) ==
PROVIDERS: Emergency Provider Emergency Medicine; Family Provider Family Medicine; PCP Family Medicine
DX: N39.0 Urinary tract infection, site not specified (principal); N40.1 Benign prostatic hyperplasia with lower urinary tract symptoms; R35.0 Frequency of micturition; Z79.899 Other long term (current) drug therapy
CPT/HCPCS: 80048; 81001; 85025; 87086; 96374; 96375; 99283; A4216; J0696

== ENCOUNTER → 2019-05-18 15:25 | Outpatient (CLI) | payer OTHER, SELFPAY ==
[2019-05-18 18:24] LABS: Anion Gap 6 (5-15); BUN 34 mg/dL (7-18); BUN/Creat Ratio 22.8 RATIO (10-20); Calcium,Total 9.7 mg/dL (8.5-10.1); Chloride 108 mmol/L (98-107); Cholesterol 193 mg/dL (200); Creatinine, Serum 1.49 mg/dL (0.70-1.30); EST Glomerular Filtration Rate 51 mL/min (>60); Est Glom Filt Rate - Afr Amer 61 mL/min (>60); Glucose 75 mg/dL (74-106); High Density Lipoprotein 59 mg/dL; PSA,Total- Diagnostic 7.52 ng/mL (0.0-4.0); Potassium 4.1 mmol/L (3.5-5.1); Sodium Level 140 mmol/L (136-145); Triglycerides 155 mg/dL; Very Low Density Lipoprotein 31 mg/dL (5-40)
== END ==
PROVIDERS: PCP Family Medicine; Referring Provider Family Medicine; Visit Provider Family Medicine
DX: Z00.00 Encounter for general adult medical examination without abnormal findings (principal); N40.0 Benign prostatic hyperplasia without lower urinary tract symptoms
CPT/HCPCS: 36415; 80048; 80061; 84153

== ENCOUNTER → 2020-04-24 08:40 | Outpatient (CLI) | payer SELFPAY ==
[2020-04-24 09:44] LABS: PSA,Total- Diagnostic 3.96 ng/mL (0.0-4.0)
== END ==
PROVIDERS: PCP Family Medicine; Referring Provider Urology; Visit Provider Urology
DX: N40.1 Benign prostatic hyperplasia with lower urinary tract symptoms (principal)
CPT/HCPCS: 36415; 84153

== ENCOUNTER → 2021-04-04 12:34 | Outpatient (CLI) | payer MEDICARE, SELFPAY ==
[2021-04-04 14:05] LABS: Hematocrit 41.8 % (40-54); Hemoglobin 13.2 g/dL (13.0-16.5); Mean Corp Hgb Conc 31.6 g/dL (32-36); Mean Corpuscular Hgb 27.6 pg (27.0-32.0); Mean Corpuscular Volume 87.3 fL (80-94); Mean Platelet Vol. 10.4 fl (6.2-12.0); Platelet Count 311 K/mm3 (150-450); RBC Distribution Width CV 11.7 % (11.6-14.6); RBC Distribution Width SD 38.1 fl (35.1-43.9); Red Blood Count 4.79 M/mm3 (4.6-6.2); White Blood Count 7.3 K/mm3 (4.4-11.0)
[2021-04-04 14:21] LABS: Anion Gap 2 (5-15); BUN 32 mg/dL (7-18); BUN/Creat Ratio 37.6 RATIO (10-20); Calcium,Total 9.5 mg/dL (8.5-10.1); Chloride 104 mmol/L (98-107); Creatinine, Serum 0.85 mg/dL (0.70-1.30); EST Glomerular Filtration Rate 96 mL/min (>60); Est Glom Filt Rate - Afr Amer 116 mL/min (>60); Glucose 113 mg/dL (74-106); Sodium Level 137 mmol/L (136-145)
== END ==
PROVIDERS: PCP Family Medicine; Referring Provider Family Medicine; Visit Provider Family Medicine
DX: M79.606 Pain in leg, unspecified (principal)
CPT/HCPCS: 36415; 80048; 85027

== ENCOUNTER 2021-04-26 13:31 | Outpatient (CLI) | payer BC, SELFPAY ==
[2021-04-26 13:37] LABS: Lyme Ab Screen Interpretation REF LAB
[2021-04-26 15:58] LABS: ALB/GLOB Ratio 0.7 RATIO (0.9-2.4); AST(SGOT) 12 U/L (15-37); Alanine Aminotransfer ALT/SGPT 18 U/L (16-61); Albumin, Serum 3.1 g/dL (3.2-5.0); Alkaline Phosphatase 74 U/L (45-117); Anion Gap 8 (5-15); BUN 29 mg/dL (7-18); Calcium,Total 9.1 mg/dL (8.5-10.1); Chloride 102 mmol/L (98-107); Creatinine, Serum 0.97 mg/dL (0.70-1.30); EST Glomerular Filtration Rate 83 mL/min (>60); Est Glom Filt Rate - Afr Amer 100 mL/min (>60); Globulin 4.6 g/dL (2.2-4.2); Glucose 131 mg/dL (74-106); Lipase 113 U/L (73-393); Potassium 4.2 mmol/L (3.5-5.1); Protein, Total 7.7 g/dL (6.4-8.2); Sodium Level 138 mmol/L (136-145)
[2021-04-29 16:08] LABS: Carbohydrate AG 19-9 9 U/mL (0-35); Lyme Scn Total Ab w/Rflx <0.91 ISR (0.00-0.90)
== END 2021-04-26 23:59 | disposition short-term general hospital (02) ==
LOC: MTLAB 13:33
PROVIDERS: PCP Family Medicine; Referring Provider Family Medicine; Visit Provider Family Medicine
DX: Z77.29 Contact with and (suspected) exposure to other hazardous substances (principal)
CPT/HCPCS: 36415; 80053; 83690; 86301; 86618

== ENCOUNTER 2021-05-24 16:42 | Outpatient (CLI) | payer BC, SELFPAY ==
[2021-05-24 17:43] LABS: PSA,Total- Diagnostic 5.86 ng/mL (0.0-4.0)
== END 2021-05-24 23:59 | disposition home or self-care (01) ==
PROVIDERS: PCP Family Medicine; Visit Provider Urology
DX: N40.1 Benign prostatic hyperplasia with lower urinary tract symptoms (principal)
CPT/HCPCS: 36415; 84153

== ENCOUNTER → 2022-05-21 | Outpatient (CLI) | payer BC, SELFPAY ==
--- NOTE | 2022-05-21 16:48 | RAD_ITS ---
EXAM: XR RIGHT HIP WITH PELVIS WHEN PERFORMED, 2 OR 3 VIEWS CLINICAL INDICATION: PAIN TECHNIQUE: Two or three views of the right hip with pelvis when performed. This report was created using [employer] report generation technology. COMPARISON: None. FINDINGS: BONES/JOINTS: Unremarkable. No displaced fracture. No destructive or sclerotic lesions. Note that overlapping bowel shadows may however obscure fine detail. Sacroiliac joint is unremarkable. No widening of the pubic symphysis. The articular structures are unremarkable. SOFT TISSUES: Unremarkable. No soft tissue swelling or gas. RAD/HIP, UNI W/ Pelvis 2-3 Views IMPRESSION: No evidence of displaced pelvic or hip fracture. Electronically Signed: Thierry Minaya MD at 19:32 EST ,
== END | disposition home or self-care (01) ==
LOC: MTRAD 16:46
PROVIDERS: PCP Family Medicine; Referring Provider Family Medicine; Visit Provider Family Medicine
DX: M25.551 Pain in right hip (principal)
CPT/HCPCS: 73502

== ENCOUNTER → 2022-06-23 | Outpatient (CLI) | payer BC, SELFPAY ==
[2022-06-23 10:52] LABS: PSA,Total - Annual Screen 4.36 ng/mL (0.00-4.00)
== END | disposition home or self-care (01) ==
LOC: LAB 08:53
PROVIDERS: PCP Family Medicine; Referring Provider Registered Nurse; Visit Provider Registered Nurse
DX: Z12.5 Encounter for screening for malignant neoplasm of prostate (principal)
CPT/HCPCS: 36415; 84153; G0103